=== PATIENT | female | born 1995 | race Caucasian/White ===

== ENCOUNTER 2017-12-20 18:13 | Emergency (ER) | payer OTHER ==
--- NOTE | 2017-12-20 19:51 | ER Document Report ---
ED Medical Screen (RME) - General Chief Complaint: Post Problem Stated Complaint: PSYCH EVAL Time Seen by Provider: 12/20/17 19:47 Mode of Arrival: Ambulatory Information source: Patient Notes: Patient is a 22-year-old female who is 4 months presenting with complaint of continuous panic attacks. Patient reports she has been seen by her provider at the [facility] multiple times for this and has been placed on multiple different medications with no relief of her symptoms. Patient currently on Paxil and BuSpar. Patient denies any suicidal or homicidal ideations, patient reports that she "needs help to function". Exam: Calm, cooperative, thoughts well organized Lung sounds clear to auscultation bilaterally. I have greeted and performed a rapid initial assessment of this patient. A comprehensive ED assessment and evaluation of the patient, analysis of test results and completion of the medical decision making process will be conducted by additional ED providers. Dictation of this chart was performed using voice recognition software; therefore, there may be some unintended grammatical errors. TRAVEL OUTSIDE OF THE [place] IN LAST 30 DAYS: No - Related Data Allergies/Adverse Reactions: No Known Allergies Allergy (Unverified 12/20/17 18:22) Physical Exam - Vital signs Vitals: Temp Pulse Resp BP Pulse Ox 98.8 F 73 18 150/69 H 99 12/20/17 18:54 12/20/17 18:54 12/20/17 18:54 12/20/17 18:54 12/20/17 18:54 Course - Vital Signs Vital signs: Temp Pulse Resp BP Pulse Ox 98.8 F 73 18 150/69 H 99 12/20/17 18:54 12/20/17 18:54 12/20/17 18:54 12/20/17 18:54 12/20/17 18:54 Doctor's Discharge - Discharge Referrals: GABRIELLE PINON MD [Primary Care Provider] - Follow up as needed
[2017-12-20] MEDS ORDERED: HYDROXYZINE PAMOATE 25 MG CAPSULE (4 CAP/ER DISP) PO PRN (23:02)
--- NOTE | 2017-12-20 23:05 | ER Document Report ---
ED Psych Disorder / Suicide - General Chief Complaint: Post Problem Stated Complaint: PSYCH EVAL Time Seen by Provider: 12/20/17 19:47 Mode of Arrival: Ambulatory Information source: Patient Notes: Patient is a 22-year-old female who presents to the ER today for ongoing depression and panic attacks. Patient is currently on her third anti -depressant, Paxil and BuSpar, states that she has had for panic attacks today. She states she thinks she is having more panic attacks on the Paxil that she has been on for approximately 4 weeks. Patient has also tried Zoloft and another antibiotic that she does not remember the name of over the past 4 months after her baby was born. Patient denies any suicidal or homicidal thoughts. She states "I just need something for the anxiety. TRAVEL OUTSIDE OF THE [place] IN LAST 30 DAYS: No - Related Data Allergies/Adverse Reactions: No Known Allergies Allergy (Unverified 12/20/17 18:22) Past Medical History - General Information source: Patient - Social History Smoking Status: Never Smoker Chew tobacco use (# tins/day): No Frequency of alcohol use: None Drug Abuse: None Family History: Reviewed & Not Pertinent Patient has suicidal ideation: No Patient has homicidal ideation: No Renal/ Medical History: Denies: Hx Peritoneal Dialysis Review of Systems - Review of Systems Constitutional: No symptoms reported EENT: No symptoms reported Cardiovascular: No symptoms reported Respiratory: No symptoms reported Gastrointestinal: No symptoms reported Genitourinary: No symptoms reported Female Genitourinary: No symptoms reported Musculoskeletal: No symptoms reported Skin: No symptoms reported Hematologic/Lymphatic: No symptoms reported Neurological/Psychological: See HPI Physical Exam - Vital signs Vitals: Temp Pulse Resp BP Pulse Ox 98.8 F 73 18 150/69 H 99 12/20/17 18:54 12/20/17 18:54 12/20/17 18:54 12/20/17 18:54 12/20/17 18:54 - Notes Notes: PHYSICAL EXAMINATION: GENERAL: Anxious appearing, in no acute distress. HEAD: Atraumatic, normocephalic. EYES: Pupils equal round and reactive to light, extraocular movements intact, sclera anicteric, conjunctiva are normal. ENT: ear canals without erythema or foreign body, TMs pearly moyer with good bony landmarks, nares patent, oropharynx clear without exudates. Moist mucous membranes. NECK: Normal range of motion, supple without lymphadenopathy LUNGS: CTAB and equal. No wheezes rales or rhonchi. HEART: Regular rate and rhythm without murmurs ABDOMEN: Soft, no tenderness. No guarding, no rebound BACK: no vertebral tenderness, normal ROM GI/: no CVA tenderness EXTREMITIES: Normal range of motion, no pitting edema. No cyanosis. NEUROLOGICAL: Cranial nerves grossly intact. Normal sensory/motor exams. PSYCH: Flat affect SKIN: Warm, Dry, normal turgor, no rashes or lesions noted Course - Re-evaluation Re-evalutation: 12/20/17 23:06 Patient denies suicidal homicidal thoughts. I told patient I will not mess around with her antidepressants today, she does not want to wait to be evaluated by mental health in the morning here in the ER. I will give patient some Vistaril for panic attacks but advised that she follow-up with her mental health outpatient. She states that she thinks she can get an appointment within the next day or 2. She and both agree with this plan. - Vital Signs Vital signs: Temp Pulse Resp BP Pulse Ox 97.8 F 59 L 18 127/85 H 99 12/20/17 23:14 12/20/17 23:14 12/20/17 23:14 12/20/17 23:14 12/20/17 23:14 Discharge - Discharge Clinical Impression: depression, Anxiety Condition: Stable Disposition: HOME, SELF-CARE Additional Instructions: Return immediately for any new or worsening symptoms. Follow up with primary care provider, call tomorrow to make followup appointment. Prescriptions: Hydroxyzine Pamoate [Vistaril 25 mg Capsule] 25 mg PO Q8 PRN #15 capsule PRN Reason: Referrals: GABRIELLE PINON MD [ASSOCIATE] - Follow up as needed
[2017-12-20 23:44] VITALS: BP 127/85
== END 2017-12-20 23:18 | disposition home or self-care (01) ==
LOC: ER 18:13
DX: F53 Mental and behavioral disorders associated with the puerperium, not elsewhere classified (principal); O99.345 Other mental disorders complicating the puerperium; F41.9 Anxiety disorder, unspecified; F41.0 Panic disorder [episodic paroxysmal anxiety]; Z79.899 Other long term (current) drug therapy
CPT/HCPCS: 99284; J3490